=== PATIENT | female | born 2000 | race Caucasian/White ===

== ENCOUNTER 2021-04-20 08:06 | Inpatient (IN) ==
[2021-04-20] MEDS ORDERED: OXYTOCIN 30 UNITS/500 ML BAG IV PRN ×3 (09:08→18:51)
--- NOTE | 2021-04-20 09:14 | History & Physical Report ---
Date of Service April 20, 2021 Assessment & Plan (1) Active labor at term: Plan: 20 yo at 40 wks, in active labor, VSS afebrile GBS negative FHR reassuring Plan to admit, monitor, labs, IVF, epidural for pain (2) Tobacco smoking affecting : History of Present Illness Primary Care Provider: NO PCP Patient is a 20 yo at 40 wks who has been feeling ctxs since 2 am and got more closer and painful since 05:30 am No LOF/VB +FM Denies medical problems smoker, 5 cig/ day Denies alcohol or D rug use Denies h/o STD's, no h/o Chlamydia/ GC/ HSV GBS negative +COVID 19 on 02/25/2021 Allergies Allergy/AdvReac Type Severity Reaction Status Date / Time No Known Allergies Allergy Unverified 08/04/17 07:04 Patient History Medical History Anemia No known health problems Surgical History No history of previous surgery Family History Other No known health problems Social History Smoking Status: Current every day smoker Tobacco Type: Cigarettes packs per day: 5; Years Smoked: 8; Second Hand Exposure: Yes; Tobacco Cessation Education Requested by Patient: No Hx Alcohol Use: No Hx Substance Use: No Preferred Language: Greek Communication Ability: Effective Hearing Ability: Normal Telegraph Messenger Required: No Beliefs That Will Affect Care: None marital status: Single marital status details: Dexter Abdi Current Living Situation: Alone Current Living Situation Comment: Patient lives in [place] with father current occupational status: employed current occupation: [employer] Other Information That Helps Us Care for You: No Safety Concerns: Feels Safe At This Time Dental Care, Regularly: No Assistive Devices: None Review of Systems as per Subjective / HPI Physical Exam Constitutional: well developed, well nourished and + acute distress (with contractions) Genitourinary: normal external appearance OB Exam Abdomen: + vertex Manual OB Exam: + cervical dilation 7 cm, + cervical effacement 70%, + station - 2 and + amniotic fluid (bulging amniotic bag) OB Exam Monitor Tracing: + external uterine monitor used and + category I Results & Data ([facility]) Vital Signs (Past 12 Hours) Vital Signs Temp Pulse Resp BP 04/20/21 08:22 36.9 C 20 04/20/21 08:15 81 125/83
[2021-04-20] MEDS: LACTATED RINGER'S 1,000 ML IV PRN ×4 (09:22→18:01)
[2021-04-20] MEDS ORDERED: SODIUM CHLORIDE 0.9% INJ 10 ML VIAL ONE (09:42)
[2021-04-20] MEDS ORDERED: fentaNYL 2MCG/ML ROPIVACAINE 1.25MG/ML 100 ML BAG EPI ONE (09:42)
[2021-04-20] MEDS ORDERED: ePHEDrine sulfate 50 MG/ML AMP ONE (09:42)
[2021-04-20] MEDS ORDERED: BUPIVACAINE 0.25% 30 ML VIAL ONE (09:42)
[2021-04-20 09:51] LABS: Hematocrit (blood only) 34.9 % (37-47); Hemoglobin 11.2 g/dL (12.0-16.0); Mean Corpuscular Hemoglobin 28.2 pg (25-34); Mean Corpuscular Hgb Conc 32.1 g/dL (32-36); Mean Corpuscular Volume 87.9 fL (80-100); Mean Platelet Volume 9.5 fL (7.4-10.4); Platelet Count 272 K/uL (130-400); RDW Coefficient of Variation 16.2 % (11.5-14.5); RDW Standard Deviation 52.1 fL (36.4-46.3); Red Blood Count 3.97 M/uL (4.2-5.4); White Blood Count 14.26 K/uL (4.8-10.8)
[2021-04-20] MEDS ORDERED: fentaNYL citrate 100 MCG/2 ML VIAL ONE (10:41)
[2021-04-20] MEDS ORDERED: ONDANSETRON INJ 2 MG/ML 2 ML VIAL IV PRN (10:42)
[2021-04-20] MEDS ORDERED: ePHEDrine sulfate 50 MG/ML AMP IV PRN (10:42)
[2021-04-20] MEDS ORDERED: NALBUPHINE HCL INJ 10 MG/ML AMP IV PRN (10:42)
[2021-04-20] MEDS ORDERED: NALOXONE HCL 0.4 MG/1 ML VIAL/CARP IV PRN (10:42)
[2021-04-20] MEDS ORDERED: fentaNYL 2MCG/ML ROPIVACAINE 1.25MG/ML 100 ML BAG EPI PRN (10:42)
[2021-04-20] MEDS ORDERED: NALOXONE HCL 1 MG in SODIUM CHLORIDE 0.9% 1000ML 1,000 ML IV PRN (10:42)
[2021-04-20] MEDS ORDERED: diphenhydrAMINE 50 MG/ML VIAL IV PRN (10:42)
--- NOTE | 2021-04-20 10:44 | Anesthesiology Consultation ---
Date of Service April 20, 2021 Assessment & Plan Chart Review Chart Review: Patient NOT seen in Pre Admission Testing and Acceptable Risk for Labor Epidural Consults Requested none ASA ASA2 Proposed Anesthesia Anesthesia Type: Labor Epidural and CSE Risk / Benefits Reviewed With: PT / POA / Parent / Guardian, Accepts Plan and Informed Consent Obtained History Height/Weight Height: 5 ft 1 in Weight: 67.585 kg Allergies Allergy/AdvReac Type Severity Reaction Status Date / Time No Known Allergies Allergy Unverified 08/04/17 07:04 Medications Active Medications Generic Name Dose Route Start Last Admin Trade Name Freq PRN Reason Stop Dose Admin Lactated Ringer's 1,000 mls @ 150 mls/hr 04/20/21 09:08 04/20/21 09:22 Lr IV 04/22/21 09:07 999 mls/hr .[id number] PRN Administration L&D Protocol Protocol NPO Date Last Intake of Fluids: 04/19/21 Time Last Intake of Fluids: 18:00 Date Last Intake of Solids: 04/19/21 Time Last Intake of Solids: 18:00 Past Medical History Medical History Anemia No known health problems Exercise / Class Metabolic Activity II 4-5 Yardwork/Stairs/Walk up hill Past Family History Family History Other No known health problems Past Surgical History Surgical History No history of previous surgery Past Anesthesia History No Hx of Anesthesia Complications and No Family Hx of Anesthesia Complications History of PONV No Hx of PONV and No Hx of Motion Sickness Social History Smoking Status: Current every day smoker Hx Alcohol Use: No Hx Substance Use: No Review of Systems no chest pain or sob Physical Exam Vital Signs Last Vital Signs Temp 36.9 C 04/20/21 08:22 Pulse 77 04/20/21 10:41 Resp 20 04/20/21 08:22 BP 125/83 04/20/21 08:15 Pulse Ox 99 04/20/21 10:41 ENMT Mouth: no TMJ abnormality Thyromental Distance: > or= 3.5 Finger Breadths Mallampati Class: II Neck normal visual inspection Respiratory normal respiratory effort Auscultation: lungs clear to auscultation bilaterally Cardiovascular Rate/Rhythm: regular rate and regular rhythm Musculoskeletal Spine: normal cervical ROM Neurologic moves all extremities Psychiatric Orientation: alert and oriented x 3 Testing Laboratory Results 04/20/21 09:39
--- NOTE | 2021-04-20 13:16 | Obstetrical Progress Note ---
Date of Service April 20, 2021 Assessment & Plan Admission and Anticipated Discharge Date Admission Date: April 20, 2021 Subjective Patient is reevaluated. She has received epidural and comfortable now Vital signs stable afebrile, heart rate had been category 1 but just had a deceleration with recovery on her side, now 120s with moderate variability, VE: 9 cm/ bulging bag, AROM'ed, clear fluid, head at 0 station. Continue to monitor closely and anticipate Results & Data ([facility]) Vital Signs (Past 12 Hours) Vital Signs Temp Pulse Resp BP Pulse Ox 04/20/21 13:11 73 97 04/20/21 13:06 70 98 04/20/21 13:01 77 97 04/20/21 12:58 132/69 04/20/21 12:56 71 98 04/20/21 12:51 74 97 04/20/21 12:47 84 93 04/20/21 12:46 94 H 99 04/20/21 12:43 66 115/65 04/20/21 12:41 67 96 04/20/21 12:36 71 95 04/20/21 12:31 71 96 04/20/21 12:28 77 130/59 L 04/20/21 12:26 100 H 98 04/20/21 12:21 68 96 04/20/21 12:16 68 96 04/20/21 12:11 77 97 04/20/21 12:09 72 111/54 L 04/20/21 12:06 82 96 04/20/21 12:01 95 H 96 04/20/21 11:56 68 84/47 L 96 04/20/21 11:51 68 96 04/20/21 11:49 67 121/55 L 04/20/21 11:46 67 96 04/20/21 11:41 78 97 04/20/21 11:40 65 97/49 L 04/20/21 11:36 77 96 04/20/21 11:33 74 94/53 L 04/20/21 11:31 74 97 04/20/21 11:28 36.7 C 20 04/20/21 11:27 79 103/51 L 04/20/21 11:26 76 104/50 L 97 04/20/21 11:21 87 98 04/20/21 11:18 89 114/57 L 04/20/21 11:16 77 97 04/20/21 11:15 83 129/59 L 04/20/21 11:11 74 98 04/20/21 11:10 78 110/59 L 04/20/21 11:08 131 H 108/65 04/20/21 11:07 79 123/58 L 04/20/21 11:06 83 98 04/20/21 11:02 74 112/54 L 04/20/21 11:01 73 98 04/20/21 11:00 72 101/54 L 04/20/21 10:58 70 120/61 04/20/21 10:56 75 99 04/20/21 10:55 96 H 136/80 04/20/21 10:51 82 100 04/20/21 10:46 85 100 04/20/21 10:45 83 129/80 04/20/21 10:41 77 99 04/20/21 10:36 83 100 04/20/21 10:31 76 99 04/20/21 10:26 68 100 04/20/21 10:21 68 100 04/20/21 10:16 80 99 04/20/21 08:22 36.9 C 20 04/20/21 08:15 81 125/83
--- NOTE | 2021-04-20 17:48 | Obstetrical Progress Note ---
Date of Service April 20, 2021 Assessment & Plan Admission and Anticipated Discharge Date Admission Date: April 20, 2021 Subjective Patient is reevaluated. heart rate had a deceleration to 80s 90s after straight cath on her back, unable to recover on her sides. She was put on knee- chest position and heart rate recovered to 120s to 130s with moderate variability no more decelerations. Vaginal exam, 10 cm, 100% , head at +2 station with caput succedaneum. After 10 minutes of observation patient was turned to her back and start pushing with contractions. Manual rotation to occipitoanterior position from [facility]. heart rate had Decel again to 90s 100s. Patient was turned back to knee-chest position and FHR back to 120's. Will let to recover and start pushing on knee-chest position. Results & Data ([facility]) Vital Signs (Past 12 Hours) Vital Signs Temp Pulse Resp BP Pulse Ox 04/20/21 17:41 71 100 04/20/21 17:36 94 H 100 04/20/21 17:31 75 100 04/20/21 17:29 112 H 112/56 L 04/20/21 17:26 93 H 100 04/20/21 17:21 74 100 04/20/21 17:16 92 H 100 04/20/21 17:13 72 131/72 04/20/21 17:11 87 99 04/20/21 17:06 71 99 04/20/21 17:01 64 99 04/20/21 16:58 62 119/65 04/20/21 16:56 64 99 04/20/21 16:51 69 98 04/20/21 16:46 70 99 04/20/21 16:44 67 116/58 L 04/20/21 16:41 70 98 04/20/21 16:36 77 99 04/20/21 16:31 84 98 04/20/21 16:28 85 18 112/64 04/20/21 16:26 80 98 04/20/21 16:21 79 98 04/20/21 16:16 88 98 04/20/21 16:11 92 H 99 04/20/21 16:06 67 95 04/20/21 16:01 67 96 04/20/21 16:00 68 109/55 L 04/20/21 15:56 70 96 04/20/21 15:51 64 96 04/20/21 15:46 65 96 04/20/21 15:43 84 105/56 L 04/20/21 15:41 79 96 04/20/21 15:36 92 H 99 04/20/21 15:31 69 97 04/20/21 15:28 36.7 C 79 18 135/73 04/20/21 15:26 77 97 04/20/21 15:21 74 97 04/20/21 15:16 85 97 04/20/21 15:13 78 132/67 04/20/21 15:11 79 97 04/20/21 15:06 74 97 04/20/21 15:01 78 96 04/20/21 15:00 20 04/20/21 14:59 74 129/73 04/20/21 14:56 71 96 04/20/21 14:51 74 97 04/20/21 14:46 80 97 04/20/21 14:43 78 141/65 H 04/20/21 14:41 67 97 04/20/21 14:36 73 97 04/20/21 14:31 84 98 04/20/21 14:28 79 20 138/84 04/20/21 14:26 72 97 04/20/21 14:21 69 97 04/20/21 14:16 66 97 04/20/21 14:14 70 121/71 04/20/21 14:11 68 97 04/20/21 14:06 81 97 04/20/21 14:01 67 97 04/20/21 13:58 72 20 129/74 04/20/21 13:56 69 97 04/20/21 13:51 63 97 04/20/21 13:46 68 96 04/20/21 13:44 67 121/69 04/20/21 13:41 67 97 04/20/21 13:36 72 97 04/20/21 13:31 72 97 04/20/21 13:28 64 20 130/65 04/20/21 13:26 64 97 04/20/21 13:21 82 97 04/20/21 13:16 36.8 C 71 20 98 04/20/21 13:14 66 139/72 04/20/21 13:11 73 97 04/20/21 13:06 70 98 04/20/21 13:01 77 97 04/20/21 12:58 20 132/69 04/20/21 12:56 71 98 04/20/21 12:51 74 97 04/20/21 12:47 84 93 04/20/21 12:46 94 H 99 04/20/21 12:43 66 115/65 04/20/21 12:41 67 96 04/20/21 12:36 71 95 04/20/21 12:31 71 96 04/20/21 12:28 77 20 130/59 L 04/20/21 12:26 100 H 98 04/20/21 12:21 68 96 04/20/21 12:16 68 96 04/20/21 12:11 77 97 04/20/21 12:09 72 111/54 L 04/20/21 12:06 82 96 04/20/21 12:01 95 H 96 04/20/21 11:56 68 84/47 L 96 04/20/21 11:51 68 96 04/20/21 11:49 67 20 121/55 L 04/20/21 11:46 67 96 04/20/21 11:41 78 97 04/20/21 11:40 65 97/49 L 04/20/21 11:36 77 96 04/20/21 11:33 74 20 94/53 L 04/20/21 11:31 74 97 04/20/21 11:28 36.7 C 20 04/20/21 11:27 79 103/51 L 04/20/21 11:26 76 104/50 L 97 04/20/21 11:21 87 98 04/20/21 11:18 89 114/57 L 04/20/21 11:16 77 97 04/20/21 11:15 83 129/59 L 04/20/21 11:11 74 98 04/20/21 11:10 78 20 110/59 L 04/20/21 11:08 131 H 18 108/65 04/20/21 11:07 79 18 123/58 L 04/20/21 11:06 83 98 04/20/21 11:02 74 18 112/54 L 04/20/21 11:01 73 98 04/20/21 11:00 72 18 101/54 L 04/20/21 10:58 70 18 120/61 04/20/21 10:56 75 99 04/20/21 10:55 96 H 18 136/80 04/20/21 10:51 82 100 04/20/21 10:46 85 100 04/20/21 10:45 83 20 129/80 04/20/21 10:41 77 99 04/20/21 10:36 83 100 04/20/21 10:31 76 99 04/20/21 10:26 68 100 04/20/21 10:21 68 100 04/20/21 10:16 80 99 04/20/21 08:22 36.9 C 20 04/20/21 08:15 81 125/83
[2021-04-20] MEDS ORDERED: LIDOCAINE 1% LOCAL 20 ML VIAL ONE (18:30)
[2021-04-20] MEDS ORDERED: BUTORPHANOL TARTRATE 1 MG/ML VIAL ONE (18:34)
[2021-04-20] MEDS ORDERED: BENZOCAINE 20% AER SPR 82.5 GM CAN EXT PRN (18:51)
[2021-04-20] MEDS ORDERED: bisacodyL 10 MG SUPP PR PRN (18:51)
[2021-04-20] MEDS ORDERED: HYDROCORTISONE ACETATE 25 MG SUPP PR PRN (18:51)
[2021-04-20] MEDS ORDERED: oxyCODONE/ACETAMINOPHEN 5mg/325mg TAB PO PRN (18:51)
--- NOTE | 2021-04-20 18:56 | Delivery Summary ---
Vaginal Delivery Summary Date of Service April 20, 2021 Vaginal Delivery Summary Patient was found to be fully dilated and desire to push. She pushed for about an hour and delivered the head without difficulty. The shoulders were delivered with minimal traction and the baby was handed off to the mother where mouth and nose were suctioned. Cord was clamped x2 and cut at 1 minute delay. The cord blood was obtained. Then the vagina and perineum were checked for lacerations. There was a small second-degree laceration at 5 o'clock position in lower third of vagina and first-degree bilateral labial lacerations. Patient was feeling pain despite having epidural. 1% lidocaine was used for local anesthesia. The vagina laceration was repaired with 2-0 Vicryl in a running locked fashion bringing the vaginal mucosa together and bulbocavernosus muscles together and skin in a subcuticular fashion. Then the labial lacerations were repaired with 3-0 Vicryl on SH needle on a continuous manner. Excellent hemostasis was achieved. The placenta was found to be in the vagina, delivered spontaneously as intact and complete. Uterus was explored and found to be empty. Fundus was firm and EBL was 200 mL. Baby was a viable male Apgars were 8/9 and weight is pending. No complications happened and I was present during whole procedure. At the end of the procedure the sponge needle instrument count was correct x2.
--- NOTE | 2021-04-20 18:58 | Anesthesia Procedure Note ---
Date of Service April 20, 2021 Anesthesia Post Epidural Note Vital Signs Vital Signs: Temp Pulse Resp BP Pulse Ox 36.5 C 91 H 22 123/57 L 97 04/20/21 17:35 04/20/21 18:46 04/20/21 17:35 04/20/21 18:42 04/20/21 18:46 Notes Mental Status: alert / awake / arousable and participated in evaluation Nausea / Vomiting: adequately controlled Pain: adequately controlled Airway Patency, RR, SpO2: stable & adequate BP & HR: stable & adequate Hydration State: stable & adequate Neuraxial Anesthesia: was administered and sensory block is resolving Anesthetic Complications: no major complications apparent and Pt Satisfied with anesthetic care Epidural: Removed without complications and With tip intact
[2021-04-20] MEDS: DOCUSATE SODIUM 100 MG CAP PO SCH (21:45)
[2021-04-20] MEDS: IBUPROFEN 600 MG TAB PO PRN (22:21)
[2021-04-21] MEDS: IBUPROFEN 600 MG TAB PO PRN ×4 (03:33→19:58)
[2021-04-21 06:54] LABS: Hematocrit (blood only) 28.4 % (37-47); Hemoglobin 9.3 g/dL (12.0-16.0); Mean Corpuscular Hemoglobin 28.4 pg (25-34); Mean Corpuscular Hgb Conc 32.7 g/dL (32-36); Mean Corpuscular Volume 86.6 fL (80-100); Mean Platelet Volume 9.5 fL (7.4-10.4); Platelet Count 236 K/uL (130-400); RDW Coefficient of Variation 16.6 % (11.5-14.5); RDW Standard Deviation 52.7 fL (36.4-46.3); Red Blood Count 3.28 M/uL (4.2-5.4); White Blood Count 14.69 K/uL (4.8-10.8)
[2021-04-21] MEDS: DOCUSATE SODIUM 100 MG CAP PO SCH ×2 (08:20→19:58)
[2021-04-21] MEDS: PRENATAL VITAMIN 1 TAB PO SCH (08:21)
[2021-04-21] MEDS: FERROUS SULFATE 325 MG TAB PO SCH (08:21)
[2021-04-21] MEDS ORDERED: DIPHTHERIA/TETANUS/PERTUSSIS 0.5 ML SYR/VIAL IM ONE (09:00)
[2021-04-21] MEDS ORDERED: MEASLES, MUMPS & RUBELLA VIRUS VIAL SQ ONE (09:00)
--- NOTE | 2021-04-21 10:00 | Obstetrical Progress Note ---
Date of Service April 21, 2021 Subjective Ambulation: ambulating normally Voiding: no voiding problems Passing Gas:: Yes Diet Tolerance:: regular diet Feeding Type:: bottle feeding Current Pain Level(1-10): 0 doing well Physical Exam Constitutional WD/WN, vitals as above abdomen soft and non-tender fundus firm no edema neg Kerline's for tent d/c in AM Results & Data ([facility]) Vital Signs (Past 12 Hours) Vital Signs Temp Pulse Resp BP Pulse Ox 04/21/21 08:05 36.6 C 77 16 106/67 98 Laboratory Results Laboratory Results - last 72 hr 04/20/21 04/21/21 09:39 06:18 WBC 14.26 H 14.69 H RBC 3.97 L 3.28 L Hgb 11.2 L 9.3 L Hct 34.9 L 28.4 L MCV 87.9 86.6 MCH 28.2 28.4 MCHC 32.1 32.7 RDW Std Deviation 52.1 H 52.7 H RDW Coeff of Felicia 16.2 H 16.6 H Plt Count 272 236 MPV 9.5 9.5
[2021-04-21] MEDS: ACETAMINOPHEN 325 MG TAB PO PRN (10:11)
[2021-04-21] MEDS ORDERED: bisacodyL 5 MG TABEC PO SCH (20:00)
[2021-04-22] MEDS: IBUPROFEN 600 MG TAB PO PRN (03:07)
[2021-04-22 06:42] LABS: Hematocrit (blood only) 28.7 % (37-47); Hemoglobin 9.2 g/dL (12.0-16.0)
[2021-04-22] MEDS: ACETAMINOPHEN 325 MG TAB PO PRN (07:29)
[2021-04-22] MEDS: FERROUS SULFATE 325 MG TAB PO SCH (08:30)
[2021-04-22] MEDS: PRENATAL VITAMIN 1 TAB PO SCH (08:30)
[2021-04-22] MEDS: DOCUSATE SODIUM 100 MG CAP PO SCH (08:31)
--- NOTE | 2021-04-22 09:00 | Obstetrical Progress Note ---
Date of Service April 22, 2021 Assessment & Plan Admission and Anticipated Discharge Date Admission Date: April 20, 2021 Subjective Patient is seen and examined. She feels well, no complaints. Ambulating without dizziness Voiding without difficulty Tolerating regular diet with out N&V Bleeding is minimal No fever/ chills/ CP/ SOB/ N&V/ Leg pain BOTTLE feeding without problems Vital Signs Temp Pulse Pulse Resp BP BP Pulse Ox 04/22/21 07:56 36.4 C L 69 18 108/65 98 04/21/21 23:15 36.3 C L 67 16 97/62 L 96 04/21/21 19:07 36.8 C 75 14 111/67 97 04/21/21 16:10 36.7 C 82 18 102/63 96 04/21/21 11:37 36.8 C 82 16 108/61 97 Lab Results 04/20/21 04/21/21 04/22/21 Range/Units 09:39 06:18 06:24 WBC 14.26 H 14.69 H (4.8-10.8) K/uL RBC 3.97 L 3.28 L (4.2-5.4) M/uL Hgb 11.2 L 9.3 L 9.2 L (12.0-16.0) g/dL Hct 34.9 L 28.4 L 28.7 L (37-47) % MCV 87.9 86.6 (80-100) fL MCH 28.2 28.4 (25-34) pg MCHC 32.1 32.7 (32-36) g/dL RDW Std Deviation 52.1 H 52.7 H (36.4-46.3) fL RDW Coeff of Felicia 16.2 H 16.6 H (11.5-14.5) % Plt Count 272 236 (130-400) K/uL MPV 9.5 9.5 (7.4-10.4) fL PE: General: Alert, orientedx3, NAD Abd: soft, NT, fundus firm, below Umbilicus Perineum intact, Lochia rubra minimal Ext; NT, no edema AP: 20 yo s/p , ppd# 2 VSS Afebrile doing well Continue routine care All questions were answered Discussed when to call D/C home , f/u in office Results & Data ([facility]) Vital Signs (Past 12 Hours) Vital Signs Temp Pulse Resp BP Pulse Ox 04/22/21 07:56 36.4 C L 69 18 108/65 98 04/21/21 23:15 36.3 C L 67 16 97/62 L 96
== END 2021-04-22 10:42 | disposition home or self-care (01) | DRG 807 ==
LOC: OPB 08:06 → 4S1 08:08 → 4S2 22:18 → 4E2 04-22 09:19